=== PATIENT | female | born 1945 | race Caucasian/White ===

== ENCOUNTER → 2020-02-04 15:11 | Outpatient (BNVA) | payer MEDICARE, OTHER, SELFPAY | PROVIDERS: PCP Nurse Practitioner Family; Visit Provider Family Medicine | DX: N89.8 Other specified noninflammatory disorders of vagina (principal); N76.0 Acute vaginitis | CPT/HCPCS: 81003; 87491; 87591 ==

== ENCOUNTER → 2020-02-17 14:17 | Outpatient (BNVA) | payer MEDICARE, OTHER, SELFPAY | PROVIDERS: PCP Nurse Practitioner Family; Visit Provider Family Medicine | DX: N39.0 Urinary tract infection, site not specified (principal) | CPT/HCPCS: 81000 ==

== ENCOUNTER → 2020-03-15 13:10 | Outpatient (BNVA) | payer MEDICARE, OTHER, SELFPAY | PROVIDERS: PCP Family Medicine; Visit Provider Family Medicine | DX: R31.9 Hematuria, unspecified (principal) | CPT/HCPCS: 81003; 87086 ==

== ENCOUNTER → 2020-09-11 19:00 | Outpatient (BNVA) | payer MEDICARE, OTHER, SELFPAY | PROVIDERS: PCP Family Medicine; Visit Provider Nurse Practitioner Family | DX: J02.9 Acute pharyngitis, unspecified (principal) | CPT/HCPCS: 87071; 87880 ==

== ENCOUNTER → 2020-09-15 08:57 | Outpatient (BNVA) | payer MEDICARE, OTHER, SELFPAY | PROVIDERS: PCP Family Medicine; Visit Provider Nurse Practitioner Family | DX: M54.6 Pain in thoracic spine (principal) | CPT/HCPCS: 81003; 85025 ==

== ENCOUNTER 2020-09-17 10:22 | Outpatient (CLI) | payer MEDICARE, OTHER, SELFPAY ==
--- NOTE | 2020-09-17 10:39 | XR_ITS ---
WS: [id number] Thoracic spine, 3 views, 09/17/2020 Clinical Data: M54.6 - Pain in thoracic spine Comparison: None. Findings: No compression fractures are seen. The disc heights are normal. Osteoarthritic changes of the vertebral bodies is moderate. The paravertebral regions are unremarkabl e. There are clips in the right upper quadrant from a cholecystectomy and a right subdiaphragmatic harrison rgical clip. XR/XR thoracic spine 3V* [id number] Impression: Moderate osteoarthritis of the thoracic vertebral bodies.
--- NOTE | 2020-09-17 10:39 | XR_ITS ---
WS: [id number] Lumbar spine, 3 views, 09/17/2020 Clinical Data: M54.5 - Low back pain Comparison: None. Findings: No compression fractures or subluxation is seen. Degenerative disc narrowing is present at L5-S1.. Th e transverse processes and SI joints are normal. There is osteoarthritic spurring of all the lumbar vertebral bodies. There are clips in the right upp er quadrant from a cholecystectomy. There is a surgical clip to the right of L2. XR/XR lumbar spine 2-3V* [id number] Impression: Osteoarthritis of the lumbar vertebral bodies with degenerative disc narrowing at L5-S1.
--- NOTE | 2020-09-17 10:39 | XR_ITS ---
WS: [id number] Chest with left rib detail, 09/17/2020 Clinical Data: R07.81 - Pleurodynia Comparison: None. Findings: The lungs show no nodules, masses, or effusions. The heart is normal. No pneumonia or pneumothorax is seen. There are clips in the right upper quadrant from a cholecystectomy. There is a clip inferior to the r ight diaphragm from surgery. The aortic arch and descending aorta are tortuous. The ribs are intact. No rib fractures seen. No subcutaneous emphysema is present. No pneumothorax is seen. XR/XR ribs LT mn 3V w CXR1V [id number] Impression: Negative chest with left rib detail.
== END 2020-09-17 10:23 | disposition home or self-care (01) ==
LOC: RADWPI 10:27
PROVIDERS: PCP Family Medicine; Visit Provider Nurse Practitioner Family
DX: M47.897 Other spondylosis, lumbosacral region (principal); M54.5 Low back pain; R07.81 Pleurodynia; M54.6 Pain in thoracic spine
CPT/HCPCS: 71101; 72072; 72100

== ENCOUNTER 2020-09-18 04:01 | Emergency (ER) | payer MEDICARE, OTHER, SELFPAY ==
[2020-09-18 04:05] VITALS: BP 120/73; PULSE 80; RESP 18; TEMP 36.3; O2SAT 97; BMI 30.1
[2020-09-18 04:41] VITALS: BP 145/88; PULSE 84; RESP 18; O2SAT 100
--- NOTE | 2020-09-18 04:48 | CTR_ITS ---
PROCEDURE INFORMATION: Exam: CT Abdomen And Pelvis Without Contrast Exam date and time: 09/18/2020 4:49 AM Age: 75 years old Clinical indication: Abdominal pain; Left; Prior surgery; Surgery type: Gb; Patient HX: Flank pain; Additional info: Left flank pain TECHNIQUE: Imaging protocol: Computed tomography of the abdomen and pelvis without contrast. Radiation optimization: All CT scans at this facility use at least one of these dose optimization techniques: automated exposure control; mA and/or kV adjustment per patient size (includes targeted exams where dose is matched to clinical indication); or iterative reconstruction. COMPARISON: CT Abdomen/Pelvis Renal [id number] 10/19/2015 3:03 PM RADIATION DOSE METRICS: Total DLP (mGy-cm): 1309.34 FINDINGS: Lungs: Mild atelectasis is present in the lung bases. Mediastinal space: There is a small sliding hiatal hernia. Liver: Small benign cysts are present in the liver. Liver is otherwise unremarkable. Gallbladder and bile ducts: Cholecystectomy. Mild extrahepatic bile duct dilatation which may be normal after cholecystectomy. Pancreas: Normal. No ductal dilation. Spleen: Benign calcified granulomas in the spleen. Adrenal glands: Normal. No mass. Kidneys and ureters: Normal. No hydronephrosis. Stomach and bowel: There are a few diverticuli in the colon but no evidence of acute diverticulitis. There is no evidence of bowel obstruction or dilatation. Appendix: No evidence of appendicitis. Intraperitoneal space: Unremarkable. No free air. No significant fluid collection. Vasculature: There is calcification of the coronary arteries. Heart is not enlarged. Calcification of the aorta. No aneurysm. Lymph nodes: There is a 2.2 cm enlarged lymph node in the right groin which is nonspecific and probably reactive in nature. No retroperitoneal adenopathy is seen. Urinary bladder: Unremarkable as visualized. Reproductive: Unremarkable as visualized. Bones/joints: Degenerative changes are present in the spine with joint space narrowing sclerosis and osteophyte formation. Soft tissues: There is a 1 cm Bartholin cyst on the left side. CT/CT kidney stone [id number] IMPRESSION: 1. No acute abnormalities are seen in the abdomen and pelvis. 2. Small hiatal hernia. 3. DJD in the spine. 4. Mild diverticulosis. 5. No abnormalities are seen in the kidneys. Radiation Dose CTDIVOL = (mGy): DLP = 1309.34 (mGy-cm)
[2020-09-18] MEDS: sodium chloride 0.9% 500 ML IV (04:49)
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
[2020-09-18 04:58] VITALS: RESP 18; O2SAT 99
[2020-09-18] MEDS: morphine 4 mg/mL SDV 1 mL IVP (04:58)
[2020-09-18] MEDS: ondansetron 2 mg/ML SDV 2 mL 4 MG IVP (04:59)
[2020-09-18 05:11] VITALS: BP 140/78; PULSE 75; RESP 16; O2SAT 95
[2020-09-18 05:12] LABS: Basophils % 0.4 %; Eosinophils # 0.2 10^3/uL (0.0-0.8); Eosinophils % 1.7 %; Hematocrit 36.7 % (37.0-47.0); Hemoglobin 12.3 g/dL (11.5-15.3); Lymphocytes # 1.5 10^3/uL (0.8-4.8); Lymphocytes % 15.7 %; Mean Corpuscular HGB Conc 33.5 g/dL (30.0-36.0); Mean Corpuscular Hemoglobin 31.8 pg (28.0-34.0); Mean Corpuscular Volume 94.8 fL (81-99); Mean Platelet Volume 9.1 fL (7.4-10.4); Monocytes # 0.8 10^3/uL (0.2-0.9); Monocytes % 8.5 %; Neutrophils # 6.98 10^3/uL (1.8-7.7); Neutrophils % 73.4 %; Nucleated Red Blood Cells % 0 %; Platelet Count 320 10^3/cmm (130-400); Red Blood Count 3.87 10^6/uL (4.1-5.3); Red Cell Distribution Width 13.5 % (12.1-15.1); White Blood Count 9.5 10^3/uL (4.0-10.0)
--- NOTE | 2020-09-18 05:46 | PC.NURSE ---
Pt reporting right side chest pain and SOB. Dr Deleon notified. VSS. EKG obtained. Pt placed on playground monitor.
[2020-09-18 05:47] LABS: Alanine Aminotransferase 22 U/L (0-33); Alkaline Phosphatase 83 IU/L (35-105); Anion Gap 13.2 (5-19); Aspartate Amino Transferase 24 U/L (0-32); Blood Urea Nitrogen 14 mg/dL (8-23); C Reactive Protein 2.2 mg/L (0.0-4.9); Calcium 9.2 mg/dL (8.5-10.5); Carbon Dioxide 27 mmol/L (22-29); Chloride 97 mmol/L (98-107); Creatinine Clr Calc Pharmacy 59.7433; Globulin 2.8 g/dL (1.3-4.6); Glucose 125 mg/dL (65-115); Lipase 30 U/L (13-60); Osmolality Calculated 278 mOsm/kg (285-295); Potassium 4.2 mmol/L (3.5-5.1); Sodium 133 mmol/L (136-145); Total Bilirubin 0.4 mg/dL (0.15-1.2); Total Protein 6.8 g/dL (6.6-8.7)
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
[2020-09-18 06:25] LABS: Troponin(5th) Baseline 6 ng/L (0-10)
[2020-09-18 06:36] LABS: Urine Appearance Clear (CLEAR); Urine Color Straw (Yellow); pH Urine 7 (5-7)
[2020-09-18 06:37] LABS: Add Urine Microscopic? YES; Bilirubin Urine Neg (Negative); Blood Urine 2+ (Negative); Glucose Urine UA Norm (Normal); Ketones Urine Negative (Negative); Leukocyte Esterase Urine Trace (Negative); Nitrate Urine Negative (Negative); Protein Urine Neg (Negative); Urobilinogen Urine Norm (Negative)
[2020-09-18 06:38] LABS: Add Urine Culture? No; Bacteria Urine TRACE /hpf; RBC Urine 0-4 /hpf (0-2); Squamous Epithelial Cell Urine 0-4 /hpf (0-5); Transitional Epi Cells Urine 0-4 /hpf; WBC Urine 0-4 /hpf (0-5)
[2020-09-18 07:02] VITALS: BP 118/70; PULSE 78; RESP 18; O2SAT 96
[2020-09-18 07:26] VITALS: BP 118/70; PULSE 74; RESP 18; O2SAT 95
[2020-09-18 07:34] LABS: Troponin 5 2HR 6.32 ng/L (0-10); Troponin 5 2HR Delta 0.32 ABS# (0-10)
--- NOTE | 2020-09-18 07:46 | ECG_ITS ---
[facility] Test Date: 2020-09-18 Pat Name: Shayna Sawant (Marie) Department: Room: Gender: Female It Assistant: : 1945 Requested By: Sean Mcmanus Order Number: [id number] Reading MD: ROZINA FOLEY Measurements Intervals [place] Rate: 68 P: 74 [place]: 166 QRS: 33 QRSD: 83 T: 14 QT: 403 QTc: 431 Interpretive Statements SINUS RHYTHM WITH OCCASIONAL VENTRICULAR PREMATURE COMPLEXES POSSIBLE LEFT ATRIAL ENLARGEMENT [-0.1mV P WAVE IN V1/V2] Compared to ECG 09/18/2020 05:43:37 Ventricular premature complex(es) now present Electronically Signed On 09-18-2020 17:28:05 GUN BARREL FINISHER by ROZINA FOLEY [id number]
--- NOTE | 2020-09-18 11:46 | ECG_ITS ---
[facility] Test Date: 2020-09-18 Pat Name: Shayna Sawant (Marie) Department: Room: Gender: Female Child And Adolescent Psychologist: : 1945 Requested By: Sean Mcmanus Order Number: [id number] [place] MD: ROZINA FOLEY Measurements Intervals [place] Rate: 76 P: 76 [place]: 155 QRS: 55 QRSD: 96 T: 44 QT: 383 QTc: 431 Interpretive Statements SINUS RHYTHM No previous ECG available for comparison Electronically Signed On 09-18-2020 17:28:09 MILL CONTROL OPERATOR by ROZINA FOLEY [id number]
== END 2020-09-18 07:51 | disposition home or self-care (01) ==
PROVIDERS: Emergency Medicine; Emergency Provider Family Medicine; PCP Family Medicine
DX: R07.81 Pleurodynia (principal)
CPT/HCPCS: 12345; 72131; 74176; 80053; 81001; 83690; 84484; 85025; 85378; 86140; 93005; 96361; 96374; 96375; 99283; 99284; J2270; J2405; J7040

== ENCOUNTER → 2021-03-08 11:19 | Outpatient (BNVA) | payer MEDICARE, OTHER, SELFPAY | PROVIDERS: PCP Family Medicine; Visit Provider Family Medicine | DX: R53.83 Other fatigue (principal); E53.8 Deficiency of other specified B group vitamins; E55.9 Vitamin D deficiency, unspecified; I49.9 Cardiac arrhythmia, unspecified; I49.8 Other specified cardiac arrhythmias; Z79.899 Other long term (current) drug therapy | CPT/HCPCS: 80053; 82306; 82607; 84443; 85025 ==

== ENCOUNTER → 2021-05-10 10:37 | Outpatient (BNVA) | payer MEDICARE, OTHER, SELFPAY | PROVIDERS: PCP Family Medicine; Visit Provider Family Medicine | DX: R19.7 Diarrhea, unspecified (principal) | CPT/HCPCS: 87493 ==

== ENCOUNTER 2021-06-22 11:44 | Emergency (ER) | payer MEDICARE, OTHER, SELFPAY ==
--- NOTE | 2021-06-22 11:53 | XR_ITS ---
WS: [id number] Portable AP upright chest, 06/22/2021 Clinical Data: cough Comparison: PA chest Findings: No nodules, masses or effusions are seen. The heart is normal. The pulmonary vascularity is not increased. No pneumonia or pneumothorax is seen. The aortic arch and descending aorta show minim al tortuosity. XR/XR chest 1V portable [id number] Impression: Atherosclerosis.
[2021-06-22 12:29] VITALS: BP 117/71; PULSE 45; RESP 20; TEMP 36.8; O2SAT 96; BMI 28.3
--- NOTE | 2021-06-22 12:30 | ED_ITS ---
HPI - URI/Sore Throat General: Chief Complaint: General Medical Stated Complaint: COUGH X 1+ WKS, NEG TEST ON SAT Time Seen by Provider: 06/22/21 12:27 Source: patient Mode of arrival: ambulatory Limitations: no limitations History of Present Illness: HPI Narrative: Patient is a nice 75-year-old female who presents to ED today with complaint of a nonproductive cough over the past 1 to 2 weeks. Patient tells me she was recently placed on a Z-Yomi at urgent care and has one dose of this left. She felt like yesterday she seemed to be improving but again worsened that evening. She states cough seems to be worse if she lies flat and improved if she sits up. She is not having complaints of shortness of breath or chest pain. She states she was recently tested for COVID which came back negative. She is not running fevers. No nasal congestion/discharge or sore throat. She states she has been around grandchildren who have been sick with similar symptoms. MD elicited complaint: cough Onset (ago): week(s) Consistency: intermittent Severity: moderate Able to tolerate fluids by mouth: Yes Exacerbating factors: other (laying down) Relieving factors: other (sitting up) Associated symptoms: Reports no associated symptoms; Deny chills, chest pain, fever(s), headache(s), nasal congestion, nausea, sinus pain or vomiting Treatments prior to arrival: antibiotics Review of Systems Const: Denies: fever(s), chills, body aches, change in appetite, change in weight, fatigue, malaise or diaphoresis Eyes: Denies: change in vision or blurry vision ENMT: Denies: throat pain, uvular edema, enlarged tonsils, odynophagia, hoarseness, mouth pain, oral sores, nasal discharge, nasal congestion, post nasal drip or sinus pain Card: Denies: chest pain or palpitations Resp: Reports: non-productive cough; Denies: dyspnea, productive cough, wheezing, stridor, pain on inspiration, change in phlegm color, hemoptysis or chest congestion GI: Denies: nausea or vomiting Musc: Denies: neck pain or back pain Skin/Breast: Denies: rash Neuro: Denies: headache(s), numbness in extremities, weakness in extremities, sensory changes or dizziness [facility] ED PFSH: Medical History ASVD (arteriosclerotic vascular disease) GERD (gastroesophageal reflux disease) Seasonal allergies Vitamin D deficiency Social History Second hand smoke exposure: No Alcohol intake: never Lives independently: Yes Household members: spouse Marital status: service: No Current occupational status: 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 History of recent travel: No Current gender identity: Female Special dipak needs: No Agree to transfusion: Yes Physical Exam Const: COMMON NORMALS: no acute distress, average body habitus, patient oriented x3, no limitations, healthy appearing, alert and well nourished ORIENTATION/CONSCIOUSNESS: Yes awake, Yes oriented to person, Yes oriented to place and Yes oriented to time HENMT: COMMON NORMALS: normocephalic, atraumatic, moist oral mucous membranes and oropharynx normal HEAD & SCALP: normal to inspection, normocephalic and atraumatic FACE & SINUS: normal facial exam and sinuses nontender THROAT: posterior oropharynx normal, tonsils normal and uvula midline; no uvular edema Neck/C-Spine: COMMON NORMALS: no lymphadenopathy Chest: COMMONS NORMALS: normal inspection of the chest and normal palpation of entire chest wall Resp: COMMON NORMALS: normal respiratory effort and clear to auscultation bilaterally AUSCULTATION: clear to auscultation bilaterally Cardio: COMMON NORMALS: regular rhythm RATE: bradycardic (increases after coughing but baseline is roughly mid 40s) RHYTHM: regular rhythm Extremity: COMMON NORMALS: no pedal edema Neuro: COMMON NORMALS: patient oriented x3 SENSORIUM/ORIENTATION: Yes alert, Yes oriented to person, Yes oriented to place and Yes oriented to time Skin: COMMON NORMALS: no rashes or lesions noted GENERAL SKIN EXAM: no rashes or lesions noted Course Vital Signs: Vital signs: Vital Signs Temperature 98.2 F 06/22/21 12:29 Pulse Rate 39 L 06/22/21 12:47 Respiratory Rate 20 H 06/22/21 12:29 Blood Pressure 115/65 06/22/21 12:47 Pulse Oximetry 98 06/22/21 12:47 MDM - URI/Sore Throat MDM Narrative: Medical decision making narrative: Patient clinically is non- ill nontoxic appearing. Vitals are stable but she is noted to be bradycardic (she has no charted low pulse rates on visit history/review of past vitals). She reports she was placed on metoprolol 2 months ago for ectopic beats that were seen on her holter monitor. She reports sometimes she gets dizzy if she stands up too quickly (states this has been present since starting the medication) but otherwise does not have complaints of fatigue, lightheadedness, or passing out episodes. We will have patient discontinue the beta blair at this point and have her follow up with PCP to see if they want to continue this or not. Her CXR showing nothing acute. Cough is most likely related to viral URI as she states she was around sick grandchildren. Will place on steroids and something for her cough for symptomatic relief. Return to ED precautions given. Otherwise I want her to follow up with PCP. Patient verbalized understanding and agrees. Imaging Data^: CXR: Radiologist's impression: [address] [address]FV[place] ReportSigned Patient: Shayna Sawant (Marie) #: [id number]: 5Acct#:[id number]/Sex: 75 / FADM Date: 06/22/21Loc: [facility]/Bed:Attending Dr: Ordering Provider/Ordering MD: Dennise Lou Date of Service: 06/22/21 Procedure(s): XR chest 1V portable [id number] Accession Number(s): [id number] Report Number: [id number] WS: [id number] Portable AP upright chest, 06/22/2021 Clinical Data: cough Comparison: PA chest Findings: No nodules, masses or effusions are seen. The heart is normal. The pulmonary vascularity is not increased. No pneumonia or pneumothorax is seen. The aortic arch and descending aorta show minimal tortuosity. XR/XR chest 1V portable [id number] Impression: Atherosclerosis. Dictated By:Alma Yoon MDSigned By:Alma Yoon MDSigned Date/Time:06/22/21 1235DD/ 1234 Discharge Plan Discharge Patient Disposition: Home Clinical Impression: Bradycardia, drug induced, Upper respiratory virus Condition: Stable Prescriptions: New prednisone 10 mg tablet 10 mg PO DAILY 10 Days Qty: 20 RF: 0 promethazine-codeine 6.25-10 mg/5 mL syrup 5 ml PO Q6H PRN (Reason: cough) Qty: 118 RF: 0 Discontinued metoprolol tartrate 25 mg tablet 12.5 mg PO BID Qty: 60 RF: 2 No Action azithromycin 250 mg tablet See Rx Instructions PO .COMPLEX Qty: 6 RF: 0 mecobalamin (vitamin B12) 1,000 mcg tablet,chewable 1,000 mcg PO DAILY RF: 0 cholecalciferol (vitamin D3) 50 mcg (2,000 unit) capsule 50 mcg PO DAILY RF: 0 Discharge Orders: Discharge ED (Routine); Ordered 06/22/21 Ordered By: Dennise Lou Referrals: Marisol Perez MD [Primary Care Provider] - Patient Instructions: Upper Respiratory Infection (ED), Upper Respiratory Infection - Adult Activity Restrictions/Additional Instructions: As we discussed we will discontinue your metoprolol due to low heart rate in the ED. We will treat your viral upper respiratory infection with steroids and cough medication. Please follow-up with primary care as soon as possible. You need to return to the emergency department for severe lightheadedness, dizziness, passing out episodes, chest pain, shortness of breath, difficulty breathing, palpitations, or any other concerns you may have. I hope you begin to feel better soon. 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
[2021-06-22 12:47] VITALS: BP 115/65; PULSE 39; O2SAT 98
[2021-06-22 13:16] VITALS: PULSE 42; O2SAT 96
== END 2021-06-22 13:18 | disposition home or self-care (01) ==
PROVIDERS: Emergency Provider Physician Assistant; PCP Family Medicine
DX: R00.1 Bradycardia, unspecified (principal); T50.905A Adverse effect of unspecified drugs, medicaments and biological substances, initial encounter; J06.9 Acute upper respiratory infection, unspecified
CPT/HCPCS: 71045; 99281

== ENCOUNTER → 2021-11-14 09:29 | Outpatient (BNVA) | payer MEDICARE, OTHER, SELFPAY | PROVIDERS: PCP Family Medicine; Visit Provider Nurse Practitioner Family | DX: Z11.52 Encounter for screening for COVID-19 (principal) | CPT/HCPCS: 87635 ==

== ENCOUNTER 2022-03-06 15:50 | Emergency (ER) | payer MEDICARE, OTHER, SELFPAY ==
--- NOTE | 2022-03-06 15:54 | USCV_ITS ---
Shayna SawantCindaMishel Age: 76 Gender: F : 1945 Exam Date: 03/06/2022 16:10 Ordering Phys: Akil Vega MD Technologist: Tim Dorsey Exam Location: [facility] Indication: lt leg pain and swelling PROCEDURES: Venous duplex imaging was performed in only the left lower extremity. The following venous structures were evaluated: common femoral vein, profunda vein, proximal portion of the greater saphenous vein, superficial femoral vein, and the popliteal vein. In addition, the posterior tibial and peroneal trunk were evaluated. FINDINGS: Normal 2-D Doppler and augmentation and compressibility throughout the lower extremity venous structures. Additional imaging through the proximal calf veins also reveals no thrombus. Limited evaluation of the greater saphenous vein is patent with no thrombus. Complex cystic mass with low level echos and no vascularity measuring 2.7 x 1.3 cm in the left popliteal fossa. CONCLUSIONS No DVT left lower extremity. Left popliteal fossa Morillo's cyst. Dr. Rosalba Perez DO (Electronically Signed) Final Date: 07 Mar 2022 07:46 S
--- NOTE | 2022-03-06 15:54 | XRR_ITS ---
PROCEDURE INFORMATION: Exam: XR Chest Exam date and time: 03/06/2022 4:26 PM Age: 76 years old Clinical indication: Shortness of breath; Additional info: SOB TECHNIQUE: Imaging protocol: XR of the chest. Views: 1 view. COMPARISON: CR XR chest 1V portable [id number] 06/22/2021 12:10 PM FINDINGS: Lungs: Hyperinflated lungs. No consolidation. Pleural spaces: Unremarkable. No pleural effusion. No pneumothorax. Heart/Mediastinum: Unremarkable. No cardiomegaly. Bones/joints: Unremarkable. XR/XR chest 1V portable [id number] IMPRESSION: No acute findings.
--- NOTE | 2022-03-06 15:54 | XRR_ITS ---
PROCEDURE INFORMATION: Exam: XR Left Knee Exam date and time: 03/06/2022 4:26 PM Age: 76 years old Clinical indication: Pain; Knee; Left TECHNIQUE: Imaging protocol: XR Left knee. Views: 3 views. COMPARISON: No relevant prior studies available. FINDINGS: Bones/joints: No acute fracture. 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 Soft tissues: Normal. XR/XR knee LT 3V* [id number] IMPRESSION: No acute findings. 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
--- NOTE | 2022-03-06 15:55 | ECG_ITS ---
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 Measurements Intervals [place] Rate: 71 P: 61 NC: 168 QRS: 76 QRSD: 85 T: 59 QT: 401 QTc: 438 Interpretive Statements SINUS RHYTHM Compared to ECG 09/18/2020 07:45:33 Ventricular premature complex(es) no longer present Electronically Signed On 03-06-2022 17:23:25 CDT by Ayaz Vazquez M.D. [id number]
[2022-03-06 16:02] VITALS: PULSE 74; RESP 24; TEMP 36.8; O2SAT 100; BMI 30.1
--- NOTE | 2022-03-06 16:16 | W.ED.ALLEREA ---
HPI - Allergic Reaction General: Chief complaint: Allergic Reaction Stated complaint: ALLERGIC REACTION/ SOB Time Seen by Provider: 03/06/22 15:51 Source: patient and EMS Mode of arrival: EMS Limitations: no limitations History of Present Illness: HPI narrative: 76-year-old female states she been having pain in her left knee woke up noticed some swelling in the posterior portion of that knee she went to see urgent care they gave her a shot of Toradol and she states she started to feel itching had shortness of breath EMS states when they arrive she was also hypotensive in the 70s she denies having any known allergies. Started to feel improved besides her knee pain. Denies any injuries. Associated symptoms: Deny abdominal pain, nausea or vomiting Review of Systems Const: Denies: fever(s), chills, body aches or change in appetite Eyes: Denies: blurry vision or eye discomfort ENMT: Denies: throat pain or dental pain Card: Denies: chest pain Resp: Reports: dyspnea GI: Denies: abdominal pain, nausea, vomiting or diarrhea : Denies: dysuria Musc: Reports: extremity pain; Denies: neck pain or back pain Skin/Breast: Denies: rash Neuro: Denies: headache(s) Psych: Denies: depression Tim/Lymph: Denies: easy bruising All/Imm: Denies: urticaria PFSH ED PFSH: Medical History ASVD (arteriosclerotic vascular disease) GERD (gastroesophageal reflux disease) Seasonal allergies Vitamin D deficiency Social History Smoking and tobacco status: never smoked Second hand smoke exposure: No Alcohol intake: never Lives independently: Yes Household members: spouse Marital status: service: No Current occupational status: 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 History of recent travel: No Current gender identity: Female Special dipak needs: No Agree to transfusion: Yes Physical Exam Const: COMMON NORMALS: patient oriented x3 HENMT: COMMON NORMALS: normocephalic and atraumatic HEAD & SCALP: normocephalic and atraumatic Eye: COMMON NORMALS: Equal, round and reactive pupils present and EOMs intact bilaterally PUPIL: Yes Equal, round and reactive pupils present Neck/C-Spine: COMMON NORMALS: full ROM and supple Chest: COMMONS NORMALS: normal inspection of the chest and normal palpation of entire chest wall Resp: COMMON NORMALS: normal respiratory effort, No retractions, No use of accessory muscles and clear to auscultation bilaterally AUSCULTATION: clear to auscultation bilaterally Cardio: COMMON NORMALS: regular rate, regular rhythm and No murmurs present (Cardio) RATE: regular rate RHYTHM: regular rhythm GI: COMMON NORMALS: Normal to inspection, nondistended, normoactive bowel sounds present, Soft to palpation, non-tender and no masses PALPATION: Yes Soft to palpation Extremity: NARRATIVE EXTREMITY EXAM: Tenderness to left knee slight swelling distal pulses intact no erythema to knee or warmth to touch Neuro: COMMON NORMALS: patient oriented x3, moves all extremities and no focal motor deficits Psych: COMMON NORMALS: mental status grossly normal, Normal thought process present and cooperative THOUGHT PROCESS: Normal thought process present Skin: COMMON NORMALS: no rashes or lesions noted and no wounds GENERAL SKIN EXAM: no rashes or lesions noted Course Vital Signs: Vital signs: Vital Signs Temperature 98.3 F 03/06/22 16:02 Pulse Rate 68 03/06/22 16:57 Respiratory Rate 16 03/06/22 16:57 Blood Pressure 107/77 03/06/22 16:57 Pulse Oximetry 100 03/06/22 16:57 MDM - Allergic Reaction Medical Decision Making Patient presents here with possible allergic reaction to Toradol she has been much improved here blood pressures been stable was able to turn her oxygen off she feels back to baseline patient's blood work here is normal she does have knee pain as well as found to have a Morillo's cyst likely cause neck pain no signs of DVT D-dimer is negative she is stable for discharge follow-up PCP and return if worsening. Lab Data : 03/06/22 16:25 03/06/22 16:25 Radiology Impressions Chest X-Ray 03/06/22 15:54 IMPRESSION: No acute findings. Knee X-Ray 03/06/22 15:54 IMPRESSION: No acute findings. 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 Laboratory Results WBC 10.3 10^3/uL (4.0-10.0) H 03/06/22 16:25 RBC 3.63 10^6/uL (4.1-5.3) L 03/06/22 16:25 Hgb 11.8 g/dL (11.5-15.3) 03/06/22 16:25 Hct 35.7 % (37.0-47.0) L 03/06/22 16:25 MCV 98.3 fl (81-99) 03/06/22 16:25 MCH 32.5 pg (28.0-34.0) 03/06/22 16:25 MCHC 33.1 g/dL (30.0-36.0) 03/06/22 16:25 RDW 13.6 % (12.1-15.1) 03/06/22 16:25 Plt Count 325 10^3/cmm (130-400) 03/06/22 16:25 MPV 9.0 fL (7.4-10.4) 03/06/22 16:25 Neut % (Auto) 74.6 % 03/06/22 16:25 Lymph % (Auto) 10.7 % 03/06/22 16:25 Towns % (Auto) 12.4 % 03/06/22 16:25 Eos % (Auto) 1.1 % 03/06/22 16:25 Baso % (Auto) 0.5 % 03/06/22 16:25 Neut # (Auto) 7.71 10^3/uL (1.8-7.7) H 03/06/22 16:25 Lymph # (Auto) 1.1 10^3/uL (0.8-4.8) 03/06/22 16:25 Towns # (Auto) 1.3 10^3/uL (0.2-0.9) H 03/06/22 16:25 Eos # (Auto) 0.1 10^3/uL (0.0-0.8) 03/06/22 16:25 Baso # (Auto) 0.1 10^3/uL (0.0-0.1) 03/06/22 16:25 Nucleated RBC % (auto) 0 % 03/06/22 16:25 Nucleated RBCs # 0.0 /100WBC 03/06/22 16:25 ESR 27 mm/hr (0-15) H 03/06/22 16:25 D-Dimer 0.38 ug/mIFEU (0-0.59) 03/06/22 16:25 Sodium 136 mmol/L (136-145) 03/06/22 16:25 Potassium 4.1 mmol/L (3.5-5.1) 03/06/22 16:25 Chloride 102 mmol/L (98-107) 03/06/22 16:25 Carbon Dioxide 20 mmol/L (22-29) L 03/06/22 16:25 Anion Gap 18.1 (5-19) 03/06/22 16:25 BUN 12 mg/dL (8-23) 03/06/22 16:25 Creatinine 0.7 mg/dL (0.5-0.9) 03/06/22 16:25 GFR Calculation Not Reportable 03/06/22 16:25 Glucose 107 mg/dL (65-115) 03/06/22 16:25 Calculated Osmolality 282 mOsm/kg (285-295) L 03/06/22 16:25 Lactate 3.0 mmol/L (0.5-2.2) H 03/06/22 17:04 Calcium 8.9 mg/dL (8.5-10.5) 03/06/22 16:25 Total Bilirubin 0.6 mg/dL (0.15-1.2) 03/06/22 16:25 AST 21 U/L (0-32) 03/06/22 16:25 ALT 15 U/L (0-33) 03/06/22 16:25 Alkaline Phosphatase 71 IU/L (35-105) 03/06/22 16:25 Troponin T Baseline 8 ng/L (0-10) 03/06/22 16:25 C-Reactive Protein 8.6 mg/L (0.0-4.9) H 03/06/22 16:25 NT-Pro-B Natriuret Pep 301 pg/mL (0-450) 03/06/22 16:25 Total Protein 6.1 g/dL (6.6-8.7) L 03/06/22 16:25 Albumin 3.4 g/dL (3.5-5.2) L 03/06/22 16:25 Globulin 2.7 g/dL (1.3-4.6) 03/06/22 16:25 EKG Data EKG 1: I personally reviewed and interpreted this EKG as follows: EKG interpretation date: 03/06/22 EKG interpretation time: 16:06 Interpretation: nsr hr [address] or t wave abnormalities qrs 85 qtc 424 Discharge Plan Discharge Patient Disposition: Home Clinical Impression: Allergic reaction, Morillo's cyst Condition: Stable Prescriptions: New hydrocodone-acetaminophen 5-325 mg tablet 1 tab PO Q6H PRN (Reason: pain) Qty: 14 0RF No Action metoprolol tartrate 25 mg tablet 12.5 mg PO BID 0RF mecobalamin (vitamin B12) 1,000 mcg tablet,chewable 1,000 mcg PO BEDTIME 0RF gabapentin 100 mg capsule 100 mg PO BID PRN (Reason: Pain) 0RF azithromycin [Zithromax Z-Yomi] 250 mg tablet See Rx Instructions PO .COMPLEX Qty: 6 0RF Rx Instructions: For 250 mg dose pack: take 500 mg today (day 1), then 250 mg for 4 days (days 2-5) PO promethazine-DM 6.25-15 mg/5 mL syrup 5 - 10 ml PO Q6H PRN (Reason: cough) Qty: 200 1RF Eliquis 5 mg tablet 5 mg PO BID 90 Days Qty: 180 1RF Rx Instructions: wants to use 340 B cholecalciferol (vitamin D3) [Vitamin D3] 10 mcg (400 unit) Tablet 800 unit PO DAILY 0RF Discharge Orders: Discharge ED (Routine); Ordered 03/06/22 Ordered By: Akil Vega Referrals: Marisol Perez MD [Primary Care Provider] - 1-3 days Discharge Diet: Advance as tolerated Discharge Activity: Resume usual activity Patient Instructions: Morillo Cyst (ED) Coding Level of Care Code ED 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
[2022-03-06 16:21] VITALS: BP 102/49; PULSE 73; RESP 18; O2SAT 98
[2022-03-06 16:38] LABS: Basophils # 0.1 10^3/uL (0.0-0.1); Basophils % 0.5 %; Eosinophils # 0.1 10^3/uL (0.0-0.8); Eosinophils % 1.1 %; Hematocrit 35.7 % (37.0-47.0); Hemoglobin 11.8 g/dL (11.5-15.3); Lymphocytes # 1.1 10^3/uL (0.8-4.8); Lymphocytes % 10.7 %; Mean Corpuscular HGB Conc 33.1 g/dL (30.0-36.0); Mean Corpuscular Hemoglobin 32.5 pg (28.0-34.0); Mean Corpuscular Volume 98.3 fl (81-99); Monocytes # 1.3 10^3/uL (0.2-0.9); Monocytes % 12.4 %; Neutrophils # 7.71 10^3/uL (1.8-7.7); Neutrophils % 74.6 %; Nucleated Red Blood Cells % 0 %; Platelet Count 325 10^3/cmm (130-400); Red Blood Count 3.63 10^6/uL (4.1-5.3); Red Cell Distribution Width 13.6 % (12.1-15.1); White Blood Count 10.3 10^3/uL (4.0-10.0)
[2022-03-06 16:43] LABS: Erythrocyte Sedimentation Rate 27 mm/hr (0-15)
[2022-03-06 16:54] VITALS: RESP 18; O2SAT 95
[2022-03-06] MEDS: morphine 4 mg/mL SDV 1 mL IVP (16:54)
[2022-03-06] MEDS: ondansetron 2 mg/ML SDV 2 mL 4 MG IVP (16:54)
[2022-03-06 16:57] VITALS: BP 107/77; PULSE 68; RESP 16; O2SAT 100
[2022-03-06 16:59] LABS: D Dimer 0.38 ug/mIFEU (0-0.59)
[2022-03-06] MEDS: sodium chloride 0.9% 1,000 ML 999 ML IV (17:20)
[2022-03-06 17:29] LABS: Troponin(5th) Baseline 8 ng/L (0-10)
[2022-03-06 17:39] LABS: Alanine Aminotransferase 15 U/L (0-33); Albumin Level 3.4 g/dL (3.5-5.2); Alkaline Phosphatase 71 IU/L (35-105); Anion Gap 18.1 (5-19); Aspartate Amino Transferase 21 U/L (0-32); Blood Urea Nitrogen 12 mg/dL (8-23); C Reactive Protein 8.6 mg/L (0.0-4.9); Calcium 8.9 mg/dL (8.5-10.5); Carbon Dioxide 20 mmol/L (22-29); Chloride 102 mmol/L (98-107); Creatinine Clr Calc Pharmacy 58.8242; Globulin 2.7 g/dL (1.3-4.6); Glucose 107 mg/dL (65-115); NT Pro B Type Natriuretic Pept 301 pg/mL (0-450); Osmolality Calculated 282 mOsm/kg (285-295); Potassium 4.1 mmol/L (3.5-5.1); Sodium 136 mmol/L (136-145); Total Bilirubin 0.6 mg/dL (0.15-1.2); Total Protein 6.1 g/dL (6.6-8.7)
[2022-03-06] MEDS: HYDROcodone-acetaminophen 5-325 mg Tablet 2 TAB PO (18:10)
== END 2022-03-06 18:13 | disposition home or self-care (01) ==
PROVIDERS: Emergency Provider Emergency Medicine; PCP Family Medicine
DX: R06.02 Shortness of breath (principal); T39.8X5A Adverse effect of other nonopioid analgesics and antipyretics, not elsewhere classified, initial encounter; Y92.532 Urgent care center as the place of occurrence of the external cause; M71.22 Synovial cyst of popliteal space [Baker], left knee; M79.605 Pain in left leg; M79.89 Other specified soft tissue disorders; I95.9 Hypotension, unspecified; Z79.01 Long term (current) use of anticoagulants
CPT/HCPCS: 71045; 73562; 80053; 83605; 83880; 84484; 85025; 85378; 85651; 86140; 93005; 93971; 96361; 96374; 96375; 99285; J2270; J2405; J7030

== ENCOUNTER → 2022-08-23 10:19 | Outpatient (BNVA) | payer MEDICARE, OTHER, SELFPAY | PROVIDERS: PCP Family Medicine; Visit Provider Podiatrist Foot & Ankle Surgery | DX: M76.821 Posterior tibial tendinitis, right leg (principal); M20.11 Hallux valgus (acquired), right foot; M24.571 Contracture, right ankle; M61.06 Myositis ossificans traumatica, lower leg | CPT/HCPCS: 73630; 99204 ==

== ENCOUNTER → 2022-09-20 09:40 | Outpatient (BNVA) | payer MEDICARE, OTHER, SELFPAY | PROVIDERS: PCP Family Medicine; Visit Provider Podiatrist Foot & Ankle Surgery | DX: M76.821 Posterior tibial tendinitis, right leg (principal); M20.11 Hallux valgus (acquired), right foot; M24.571 Contracture, right ankle; M61.50 Other ossification of muscle, unspecified site | CPT/HCPCS: 99213 ==

== ENCOUNTER → 2023-05-31 17:00 | Outpatient (BNVA) | payer MEDICARE, OTHER, SELFPAY | PROVIDERS: PCP Family Medicine; Visit Provider Family Medicine | DX: N39.0 Urinary tract infection, site not specified (principal); J20.9 Acute bronchitis, unspecified; J30.2 Other seasonal allergic rhinitis | CPT/HCPCS: 81003 ==

== ENCOUNTER → 2023-06-08 14:42 | Outpatient (BNVA) | payer MEDICARE, OTHER, SELFPAY | PROVIDERS: PCP Family Medicine; Visit Provider Nurse Practitioner Family | DX: N39.0 Urinary tract infection, site not specified (principal); R05.9 Cough, unspecified | CPT/HCPCS: 81000; 87426 ==

== ENCOUNTER → 2023-06-14 12:01 | Outpatient (BNVA) | payer MEDICARE, OTHER, SELFPAY | PROVIDERS: PCP Family Medicine; Visit Provider Nurse Practitioner Family | DX: E55.9 Vitamin D deficiency, unspecified (principal); R53.83 Other fatigue; J20.9 Acute bronchitis, unspecified | CPT/HCPCS: 80053; 82306; 83735; 85025; 85651; 86140; 86618; 86666; 86757; 87798 ==

== ENCOUNTER 2023-06-22 14:01 | Outpatient (CLI) | payer MEDICARE, OTHER, SELFPAY ==
--- NOTE | 2023-06-22 14:10 | XR_ITS ---
WS: [id number] Chest 2 views, 06/22/2023 Clinical Data: R05.3 - Chronic cough Comparison: Portable chest, 03/06/2022 Findings: No nodules, masses or effusions are seen. The heart is normal. The pulmonary vascularity is not increased. No pneumonia or pneumothorax is seen. The diaphragms are flattened. The aortic arch a nd descending thoracic aorta show tortuosity. There are surgical clips in the right upper abdomen. Impression: Atherosclerosis and hyperinflation.
== END 2023-06-22 14:02 | disposition home or self-care (01) ==
PROVIDERS: PCP Family Medicine; Visit Provider Nurse Practitioner Family
DX: R05.3 Chronic cough (principal); R70.0 Elevated erythrocyte sedimentation rate; R53.83 Other fatigue; I70.90 Unspecified atherosclerosis
CPT/HCPCS: 71046; 80053; 81003; 82607; 84443; 85025; 85651; 86038; 86140; 86200; 86431

== ENCOUNTER → 2024-03-31 08:53 | Outpatient (BNVA) | payer MEDICARE, OTHER, SELFPAY | PROVIDERS: PCP Family Medicine; Visit Provider Family Medicine | DX: I70.90 Unspecified atherosclerosis (principal); E55.9 Vitamin D deficiency, unspecified; I49.8 Other specified cardiac arrhythmias; R53.83 Other fatigue; R30.0 Dysuria; E53.8 Deficiency of other specified B group vitamins; Z79.899 Other long term (current) drug therapy; E07.9 Disorder of thyroid, unspecified | CPT/HCPCS: 80053; 80061; 81003; 82306; 82607; 84443; 85025 ==

== ENCOUNTER → 2024-05-13 08:34 | Outpatient (BNVA) | payer MEDICARE, OTHER, SELFPAY | PROVIDERS: PCP Family Medicine; Visit Provider Nurse Practitioner Family | DX: R74.8 Abnormal levels of other serum enzymes (principal) | CPT/HCPCS: 82607 ==

== ENCOUNTER → 2024-06-27 09:19 | Outpatient (BNVA) | payer MEDICARE, OTHER, SELFPAY | PROVIDERS: PCP Family Medicine; Visit Provider Podiatrist Foot & Ankle Surgery | DX: M79.672 Pain in left foot (principal); M72.2 Plantar fascial fibromatosis; M76.821 Posterior tibial tendinitis, right leg; M20.11 Hallux valgus (acquired), right foot; M79.671 Pain in right foot; M24.571 Contracture, right ankle; M61.50 Other ossification of muscle, unspecified site | CPT/HCPCS: 73630; 99213 ==

== ENCOUNTER → 2024-09-18 11:53 | Outpatient (BNVA) | payer MEDICARE, OTHER, SELFPAY | PROVIDERS: PCP Family Medicine; Visit Provider Family Medicine | DX: N39.0 Urinary tract infection, site not specified (principal); R35.0 Frequency of micturition; B96.89 Other specified bacterial agents as the cause of diseases classified elsewhere | CPT/HCPCS: 81000; 87086 ==

== ENCOUNTER 2024-10-06 06:00 | Outpatient (RCR) | payer MEDICARE, OTHER, SELFPAY | END 2024-10-14 23:59 | disposition home or self-care (01) | LOC: TPT 06:00 | PROVIDERS: PCP Family Medicine; Visit Provider Family Medicine | DX: R26.9 Unspecified abnormalities of gait and mobility (principal) | CPT/HCPCS: 97110; 97162 ==

== ENCOUNTER 2024-10-15 06:00 | Outpatient (RCR) | payer MEDICARE, OTHER, SELFPAY | END 2024-11-14 23:59 | disposition home or self-care (01) | LOC: TPT 06:00 | PROVIDERS: PCP Family Medicine; Visit Provider Family Medicine | DX: R26.9 Unspecified abnormalities of gait and mobility (principal) | CPT/HCPCS: 97110; 97112 ==

== ENCOUNTER → 2025-04-02 11:05 | Outpatient (BNVA) | payer MEDICARE, OTHER, SELFPAY | PROVIDERS: PCP Family Medicine; Visit Provider Family Medicine | DX: I48.0 Paroxysmal atrial fibrillation (principal); I70.90 Unspecified atherosclerosis; E55.9 Vitamin D deficiency, unspecified; K21.9 Gastro-esophageal reflux disease without esophagitis; R53.83 Other fatigue | CPT/HCPCS: 80053; 80061; 82306; 82607; 84439; 84443; 85025 ==

== ENCOUNTER 2025-04-13 13:50 | Outpatient (CLI) | payer MEDICARE, OTHER, SELFPAY ==
--- NOTE | 2025-04-13 14:00 | XR_ITS ---
WS: [id number] SCREENING DEXA SCAN [facility] CLINICAL INFORMATION: screening; postmenopausal COMPARISON: None. FINDINGS: The L1-L4 bone mineral density measures 0.919 g/cm2. This corresponds to a T score score of -2.2 and Z score of -0.8. Left femoral neck bone mineral density measures 0.664 g/cm2. This corresponds to a T score of -2.7 and Z score of -1.1. Right femoral neck bone mineral density measures 0.716 g/cm2. This corresponds to a T score -2.3of and Z score of -0.7. Mean femoral neck bone mineral density measures 0.690 g/cm2. This corresponds to a T score of -2.5 and Z score of -0.9. XR/XR DEXA axial skeleton* [id number] IMPRESSION: Osteopenia lumbar spine. Osteoporosis femoral necks. Patient's FRAX calculated 10 year probability for major osteoporotic fracture i s 46.3% and osteoporotic hip fracture is 35.7%.
== END 2025-04-13 13:51 | disposition home or self-care (01) ==
LOC: RAD 13:54
PROVIDERS: PCP Family Medicine; Visit Provider Family Medicine
DX: Z78.0 Asymptomatic menopausal state (principal); M85.88 Other specified disorders of bone density and structure, other site; M81.0 Age-related osteoporosis without current pathological fracture
CPT/HCPCS: 77080

== ENCOUNTER 2025-05-26 09:04 | Emergency (ER) | payer MEDICARE, OTHER, SELFPAY ==
--- OUTSIDE RECORDS SUMMARY | 2024-12-24 14:58 | XMS_ITS | Continuity of Care Document ---
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 Name Role Phone [facility] Unavailable Unavailable Problems Problem Status Onset Date Problem Type Date of Resolution Comme nts Source Acute upper respiratory infection (disorder) 12/24/2024 Diagnosis Allergies, Adverse Reactions, Alerts Substance Category Reaction Severity Reaction type Status Date Reported Comments Source Toradol Assertion Drug allergy Active [facility] Results Order Name Results Value Reference Range Date Interpretation Comments Source CLINIC SITE LAB RESULTS Influenza A Rapid POC Negative *NA* (12/24/24 2:34 PM) 025 19:34:0 0 [facility] CLINIC SITE LAB RESULTS Influenza B Rapid POC Negative *NA* (12/24/24 2:34 PM) 025 19:34:0 0 [facility] Consultation Notes Results Value Date Source Urgent Care Clinic Note Basic Informatio n Chief Complaint bodyaches cough sore throat yesterday. took tylenol this morning. History of Present Illness This is a 79-year-old female patient who presents to the urgent care concerns for sudden onset of feeling unwell yesterday around noon. Patient states that she has had bodyaches a cough and sore throat. Took Tylenol this morning but no other medications. Review of Systems Constitutional:: negative for fever, chills, sweats, fatigue, weakness, loss of appetite, weight loss,. Body aches Skin: No rashes. ENT: No ear pain, or nasal congestion. Sore throat Resp: No SOA. No wheezing. Cough CV: No chest pain. MSK: No back pain. Neuro: No headache. Lymph: No swollen nodes. All systems otherwise negative. ROS reviewed as documented in chart. Physical Exam Vitals and Measurements T: 37.1 C HR: 81 RR: 20 BP: 126/66 SpO2: 95% General: Alert. In no distress. Skin: Warm, dry, and intact. Without any rashes ENT: Oral mucosa moist. Throat is without any erythema, ears are clear no cerumen impactions, TMs are nonbulging or erythemic. Nose is without any inflammation or drainage Resp: Lungs CTA with non-labored respirations. No rales, rhonchi or wheezes CV: RRR without M/R/G MSK: ROM intact without obvious injury Back: Normal range of motion, no obvious injury Neuro: No focal deficits, normal speech Psych: Calm and cooperative Procedure Medical Decision Making 79-year-old female patient presented to the urgent care concerns for URI complaints that sort of hit her hard yesterday around 12:00. Body aches chills congestion cough. Rapid COVID-negative rapid flu negative. We did discussed with patient that there is a chance that she still may have the flu because we tested too early. Advised her to continue Tylenol and decongestants return if any concerns. Reexamination/Reevaluation Assessment/Plan 1. Viral URI Kemi attending on Patient Education URI (Upper Respiratory Infection): Viral Follow Up With When Contact Information Follow up with primary care provider Within As Needed Additional Instructions: Tylenol for any fever May use [id number] Coricidin HBP Flonase 1 sprays nostril twice daily Return if any concerns Medication Reconciliation ED Forms Problem List/Past Medical History Procedure/Surgical History Medication Administration Allergies Toradol Social History Smoking Status Never smoker Family History Lab Results Coronavirus COVID-19 LATEST RESULTS SARS-CoV2 Rapid Antigen 12/24/24 14:34 Negative Point of Care Labs LATEST RESULTS Influenza A Rapid POC 12/24/24 14:34 Negative Influenza B Rapid POC 12/24/24 14:34 Negative Diagnostic Results ECG 12/24/2024 Vital Signs Vital Sign Value Date Comments Source Temperature (Celsius) 37.1 Leah 12/24/2024 19:30:00 [facility] SBP NIBP 126 mm[Hg] 12/24/2024 19:30:00 [facility] DBP NIBP 66 mm[Hg] 12/24/2024 19:30:00 [facility] SpO2 95 % 12/24/2024 19:30:00 [facility] Respiratory Rate 20 breaths/min 12/24/2024 19:30:00 [facility] Heart Rate 81 bpm 12/24/2024 19:30:00 [facility] Encounters Location Location Details Encounter Type Encounter Number Reason For Visit Attending Provider ADM Date DC Date Status Source [facility] [id number] Giuliano Zahira 12/24 19:20 :42 12/24 19:58 :00 [facility] Social History Social History Date Source No data available for this section 12/24/2024 [facility]
--- NOTE | 2025-05-26 09:18 | W.ED.FALL ---
HPI - Fall General: Chief Complaint: Back Pain/Injury Stated Complaint: Back pain, fall Time Seen by Provider: 05/26/25 09:05 Source: patient and family Mode of arrival: ambulatory Limitations: no limitations History of Present Illness: Patient is in a 79-year-old female presents to ED today with complaint of lower back pain. She states on Sunday she experienced a fall after missing a step. She states she fell directly onto her behind . She did notice immediately lower back pain. She denies striking her head or LOC. She states she has been ambulatory since the fall and does fairly well with this. She does feel like certain movements exacerbate her lower back pain. She is not having any radicular symptoms into her legs. No saddle anesthesia or bowel or bladder dysfunction. She is not complaining of neck pain. She has no abdominal pain. Denies chest pain. She has been taking some leftover hydrocodone which seems to be helping with her pain. MD complaint: fall Onset (ago): day(s) Fall from: down stairs (#) Fall witnessed: no Place fall occurred: home Loss of consciousness: None Prolonged down time: no Symptoms prior to fall: none Context: tripped/slipped Location of injury: back Associated symptoms-after fall: Reports no associated symptoms; Denies abdominal pain, chest pain, difficulty walking, headache(s), hematuria or neck pain Related Data Home Medications ?Medication ?Instructions ?Recorded ?Confirmed cholecalciferol (vitamin D3) 10 800 unit PO DAILY 03/06/22 05/25/25 mcg (400 unit) tablet (Vitamin D3) Previous Rx's ?Medication ?Instructions ?Recorded famotidine 40 mg tablet See Rx Instructions .Route 06/03/24 .COMPLEX #90 tabs ketoconazole 2 % topical cream 1 applic topical BID 14 days #60 06/03/24 grams levocetirizine 5 mg tablet See Rx Instructions .Route 06/03/24 .COMPLEX #90 tabs metoprolol tartrate 25 mg tablet 12.5 mg (1/2 x 25 mg) PO BID #90 10/17/24 tabs gabapentin 100 mg capsule See Rx Instructions .Route 03/27/25 .COMPLEX #180 caps apixaban 5 mg tablet (Eliquis) See Rx Instructions .Route 04/02/25 .COMPLEX #180 tabs hydrocodone 5 mg-acetaminophen 325 1 tab PO Q6H PRN pain #14 tabs 05/26/25 mg tablet Allergies Allergy/AdvReac Type Severity Reaction Status Date / Time ketorolac (From Toradol) Allergy Severe ALGY-Difficulty Verified 05/25/25 15:12 Breathing escitalopram (From Lexapro) Allergy Unknown Verified 05/25/25 15:12 Review of Systems Const: Denies: fever(s), chills, body aches, fatigue or malaise Card: Denies: chest pain Resp: Denies: dyspnea GI: Denies: abdominal pain : Denies: flank pain, dysuria or hematuria Musc: Reports: back pain; Denies: neck pain, extremity pain, extremity swelling, joint pain, joint swelling or joint redness Neuro: Denies: headache(s), numbness in extremities, weakness in extremities, sensory changes or difficulty walking PFSH ED PFSH: Medical History Osteoporosis DEXA 6.30.25 Angular cheilitis due to lack of adequate intermaxillary vertical dimension Recurrent UTI Paroxysmal atrial fibrillation Elevated vitamin B12 level Chronic pain takes gabapentin prn and it helps Congestion of nasal sinus ASVD (arteriosclerotic vascular disease) sees Thermodynamics Engineer in [place]; stress test shows past IN but not on statin Vitamin D deficiency GERD (gastroesophageal reflux disease) Seasonal allergies Surgical History Hx of melanoma excision R upper arm; goes to [facility] Hx of cholecystectomy History of total right knee replacement Family History Brother Colon cancer Social History Smoking and tobacco/nicotine status: never used tobacco/nicotine Second hand smoke exposure: No Alcohol intake: never Substance/Drug Use: never Lives independently: Yes Household members: spouse Marital status: Number of children: 3 Highest education level completed: Bachelor's Degree service: No Current occupational status: 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 Current gender identity: Female Special dipak needs: No Agree to transfusion: Yes Physical Exam Const: COMMON NORMALS: no acute distress, average body habitus, patient oriented x3, no limitations, healthy appearing, alert and well nourished GENERAL APPEARANCE: cooperative ORIENTATION/CONSCIOUSNESS: Yes awake, Yes oriented to person, Yes oriented to place and Yes oriented to time HENMT: COMMON NORMALS: normocephalic and atraumatic HEAD & SCALP: normal to inspection, normocephalic and atraumatic FACE & SINUS: normal facial exam Eye: GENERAL EYE: appearance normal, both eyes and all related structures Neck/C-Spine: COMMON NORMALS: full ROM GENERAL: Yes normal visual inspection CERVICAL SPINE: Yes cervical ROM normal, No pain with cervical ROM and No Cervical spine tenderness Chest: COMMONS NORMALS: normal inspection of the chest and normal palpation of entire chest wall Resp: COMMON NORMALS: normal respiratory effort and clear to auscultation bilaterally AUSCULTATION: clear to auscultation bilaterally Cardio: COMMON NORMALS: regular rate and regular rhythm RATE: regular rate RHYTHM: regular rhythm GI: COMMON NORMALS: Normal to inspection, nondistended, normoactive bowel sounds present, Soft to palpation and non-tender PALPATION: Yes Soft to palpation : COMMON NORMALS: Yes no CVA tenderness BLADDER/KIDNEY EXAM: Yes no CVA tenderness Back/Pelvis: COMMON NORMALS: no CVA tenderness, thoracic and lumbar spine normal to inspection and straight leg raise negative bilaterally THORACIC SPINE/UPPER BACK: No thoracic spinal tenderness LUMBAR SPINE/LOWER BACK: Yes ROM limited, Yes lumbar spinal tenderness, Yes paraspinal muscle tenderness, No paraspinal muscle spasm and Yes straight leg raise negative bilaterally PELVIS: Yes buttocks normal and No sciatic notch tenderness SACRUM: no tenderness COCCYX: no tenderness Extremity: COMMON NORMALS: normal to inspection, full ROM and capillary refill normal GENERAL: Yes normal exam except as noted Neuro: COMMON NORMALS: patient oriented x3, moves all extremities, no focal motor deficits, no sensory deficits noted and gait normal SENSORIUM/ORIENTATION: Yes alert, Yes oriented to person, Yes oriented to place and Yes oriented to time Skin: TRAUMA: no lacerations or abrasions Course Vital Signs: Vital signs: Vital Signs Temperature 98.2 F 05/26/25 09:25 Pulse Rate 63 05/26/25 09:25 Respiratory Rate 18 05/26/25 09:25 Blood Pressure 117/58 05/26/25 09:25 Pulse Oximetry 96 05/26/25 09:25 Oxygen Delivery Me thod Room Air 05/26/25 09:25 MDM - Fall Medical Decision Making Lumbar XR obtained and unremarkable. Requesting pain medication to help with discomfort which will be provided. Discussed other conservative therapies such as lidocaine patches, ice, heat. Recommend she follow-up with primary care later this week/early next week for re-evaluation. Return precautions discussed. Medical Records I reviewed the patient's medical records. Lab Data Radiology Impressions Lumbar Spine X-Ray 05/26/25 09:37 IMPRESSION: There are no acute osseous findings. All radiology interpretation(s) finalized by discharge Discharge Plan Discharge Patient Disposition: Home Clinical Impression: Lumbar contusion Qualifiers: Encounter type: initial encounter Qualified Code(s): S30.0XXA - Contusion of lower back and pelvis, initial encounter Condition: Stable Prescriptions: New hydrocodone-acetaminophen 5-325 mg tablet 1 tab PO Q6H PRN (Reason: pain) Qty: 14 0RF No Action Eliquis 5 mg tablet See Rx Instructions .ROUTE .COMPLEX Qty: 180 1RF Dose Instruction: TAKE ONE TABLET BY MOUTH TWICE DAILY Rx Instructions: TAKE ONE TABLET BY MOUTH TWICE DAILY ketoconazole 2 % cream 1 applic topical BID 14 Days Qty: 60 0RF levocetirizine 5 mg tablet See Rx Instructions .ROUTE .COMPLEX Qty: 90 4RF Dose Instruction: TAKE ONE TABLET BY MOUTH DAILY Rx Instructions: TAKE ONE TABLET BY MOUTH DAILY famotidine 40 mg tablet See Rx Instructions .ROUTE .COMPLEX Qty: 90 4RF Dose Instruction: TAKE ONE TABLET BY MOUTH DAILY Rx Instructions: TAKE ONE TABLET BY MOUTH DAILY metoprolol tartrate 25 mg tablet 12.5 mg PO BID Qty: 90 3RF Rx Instructions: she is taking metoprolol 25mg 1/2 tab po bid gabapentin 100 mg capsule See Rx Instructions .ROUTE .COMPLEX Qty: 180 1RF Dose Instruction: TAKE ONE CAPSULE BY MOUTH TWICE DAILY NEEDED FOR pain Rx Instructions: TAKE ONE CAPSULE BY MOUTH TWICE DAILY NEEDED FOR pain cholecalciferol (vitamin D3) [Vitamin D3] 10 mcg (400 unit) Tablet 800 unit PO DAILY Discharge Orders: Discharge ED (Routine); Ordered 05/26/25 Ordered By: Dennise Lou Referrals: Maricel Hall MD [Primary Care Provider, Family Practice] Patient Instructions: Opioid Safety, Pain Management, Patient Portal & Prasad Instructions Activity Restrictions/Additional Instructions: Discussed, x-rays of your lower back did not show any acute fractures. We discussed using your pain medication sparingly as needed for significant discomfort and using a cane/walker to help with ambulation to prevent falls. I would like you to follow-up with your primary care provider later this week/early next week for reevaluation if symptoms or not improving. Print Language: Azerbaijani Coding Level of Care Code ED Regulation Supervisor for Addison Ames
[2025-05-26 09:25] VITALS: BP 117/58; PULSE 63; RESP 18; TEMP 36.8; O2SAT 96; BMI 28.3
--- NOTE | 2025-05-26 09:37 | XRR_ITS ---
PROCEDURE INFORMATION: Exam: XR Lumbosacral Spine Exam date and time: 05/26/2025 9:41 AM Age: 79 years old Clinical indication: Injury or trauma; Fall; Blunt trauma (contusions or hematomas); Additional info: Fall/back pain TECHNIQUE: Imaging protocol: Radiologic exam of the lumbosacral spine. Views: 2 or 3 views. COMPARISON: CT lumbar spine wo con* [id number] 09/18/2020 5:16 AM FINDINGS: Bones/joints: There is diffuse demineralization. Soft tissues: Unremarkable. XR/XR lumbar spine 2-3V* [id number] IMPRESSION: There are no acute osseous findings.
[2025-05-26] MEDS: ondansetron 2 mg/ML SDV 2 mL 4 MG IM (11:08)
[2025-05-26] MEDS: morphine 4 mg/mL SDV 1 mL IM (11:09)
[2025-05-26 11:31] VITALS: BP 90/40; PULSE 59; RESP 16; O2SAT 98
== END 2025-05-26 11:39 | disposition home or self-care (01) ==
PROVIDERS: Emergency Provider Physician Assistant; PCP Family Medicine
DX: S30.0XXA Contusion of lower back and pelvis, initial encounter (principal); Z79.01 Long term (current) use of anticoagulants
CPT/HCPCS: 72100; 96372; 99284; J2270; J2405

== ENCOUNTER → 2025-05-29 15:23 | Outpatient (BNVA) | payer MEDICARE, OTHER, SELFPAY | PROVIDERS: PCP Family Medicine; Visit Provider Nurse Practitioner Family | DX: R30.0 Dysuria (principal) | CPT/HCPCS: 81000 ==

== ENCOUNTER 2025-06-17 15:39 | Outpatient (CLI) | payer OTHER, MEDICARE, SELFPAY ==
--- NOTE | 2025-06-17 16:00 | MR_ITS ---
WS: [id number] MRI LUMBAR SPINE NONCONTRAST TECHNIQUE: Sagittal T1, T2 and STIR imaging. Axial T1 and T2 imaging. CLINICAL INFORMATION: W19.XXXA - Unspecified fall, initial encounter COMPARISON: None. FINDINGS: Edema partially visualized in the dorsal sacrum extending into the sacrococcygeal junction. This is suspicious for a nondisplaced fracture considering history of trauma. This can be further evaluated with MRI sacrum and coccyx if indicated. Acute compression fracture inferior endplate L1 with loss of approximately 20% vertebral body height and associated edema. Visualized fracture cleft. No significant retropulsion. Grade 1 anterolisthesis L4 on L5. L1-L2: Mild facet arthropathy. Spinal canal and foramen are patent. L2-L3: Mild facet arthropathy. Spinal canal and foramen are patent. L3-L4: Mild annular bulging. Narrowing of the subarticular recess bilaterally. Moderate facet arthropathy. Small bilateral foraminal protrusions with mild bilateral foraminal narrowing. This is worse on the LEFT. L4-L5: Mild annular bulging with narrowing the LEFT greater than RIGHT subarticular recess. Moderate facet arthropathy. Mild LEFT foraminal narrowing. L5-S1: Slight anterolisthesis. Mild disc bulging with narrowing of the LEFT subarticular recess. Moderate facet arthropathy. Mild LEFT foraminal narrowing. MR/MR lumbar spine wo con* [id number] IMPRESSION: 1. Edema partially visualized in the dorsal sacrum extending into the sacroc occygeal junction suspicious for nondisplaced fracture considering history of t rauma. This can be further evaluated with MRI sacrum and coccyx if indicated. 2. Acute compression fracture inferior endplate L1 with loss of approximately 20% vertebral body height and associated edema. Visualized fracture cleft. No s ignificant retropulsion.
== END 2025-06-17 15:40 | disposition home or self-care (01) ==
LOC: RAD 15:39
PROVIDERS: PCP Family Medicine; Visit Provider Nurse Practitioner Family
DX: S32.010A Wedge compression fracture of first lumbar vertebra, initial encounter for closed fracture (principal); W19.XXXA Unspecified fall, initial encounter; Y92.009 Unspecified place in unspecified non-institutional (private) residence as the place of occurrence of the external cause; R26.9 Unspecified abnormalities of gait and mobility; M85.80 Other specified disorders of bone density and structure, unspecified site; R60.0 Localized edema; M47.896 Other spondylosis, lumbar region; M51.369 Other intervertebral disc degeneration, lumbar region without mention of lumbar back pain or lower extremity pain; M51.26 Other intervertebral disc displacement, lumbar region; M51.379 Other intervertebral disc degeneration, lumbosacral region without mention of lumbar back pain or lower extremity pain; M47.897 Other spondylosis, lumbosacral region; M48.07 Spinal stenosis, lumbosacral region; M48.061 Spinal stenosis, lumbar region without neurogenic claudication
CPT/HCPCS: 72148

== ENCOUNTER → 2025-06-30 14:44 | Outpatient (BNVA) | payer OTHER, MEDICARE, SELFPAY | PROVIDERS: PCP Family Medicine; Visit Provider Family Medicine | DX: M81.0 Age-related osteoporosis without current pathological fracture (principal) | CPT/HCPCS: 82310; 83970 ==